=== PATIENT | male | born 1940 | race Caucasian/White ===

== ENCOUNTER 2024-02-04 06:19 | Day surgery (SDC) | payer MEDICARE, OTHER, SELFPAY ==
[2024-02-04 12:17] VITALS: BMI 27.4
[2024-02-04 12:20] VITALS: BMI 27.4
[2024-02-04 12:26] VITALS: BP 122/85
[2024-02-04 15:33] VITALS: BP 126/67
[2024-02-04 15:45] VITALS: BP 136/98
[2024-02-04 16:00] VITALS: BP 153/93
== END 2024-02-04 16:14 | disposition home or self-care (01) ==
LOC: SDS 06:19
PROVIDERS: ATTENDING PHYSICIAN Internal Medicine Gastroenterology
DX: K86.9 Disease of pancreas, unspecified (principal); K31.89 Other diseases of stomach and duodenum; R93.5 Abnormal findings on diagnostic imaging of other abdominal regions, including retroperitoneum
CPT/HCPCS: 43242; 88172; 88173; 88305; 88177; 88341; 88342

== ENCOUNTER 2024-07-12 08:56 | Inpatient (IN) | payer MEDICARE, OTHER, SELFPAY ==
[2024-06-23 10:44] LABS: Hematocrit 40.2 % (39.0-52.0); Mean Corp Hgb Conc. 32.3 g/dL (33.0-37.0); Mean Corpuscular Hgb 30.3 pg (27.0-31.0); Mean Corpuscular Volume 93.7 fL (80.0-94.0); Mean Platelet Volume 9.3 fL (7.4-10.4); Platelet Count 203 10^3/uL (130-400); Red Blood Cell Count 4.29 10^6/uL (4.70-6.10); Red Cell Dist. Width 15.3 % (11.5-14.5); White Blood Cell Count 4.9 10^3/uL (4.8-10.8)
[2024-06-23 10:54] LABS: INR 1.26; PT 16.3 Sec (11.4-14.6)
[2024-06-23 10:55] LABS: APTT 30.7 Sec (23.4-35.0)
[2024-06-23 11:33] LABS: ALT (SGPT) < 10 U/L (0-50); AST (SGOT) 22 U/L (17-59); Albumin 4.2 g/dl (3.5-5.0); Alkaline Phosphatase 74 U/L (38-126); Blood Urea Nitrogen 35 mg/dl (9-20); Carbon Dioxide 29 mmol/L (22-30); Chloride 101 mmol/L (98-107); Glucose 86 mg/dl (70-99); Sodium 138 mmol/L (135-145); Total Bilirubin 0.9 mg/dl (0.2-1.3); Total Protein 7.2 g/dl (6.3-8.2); eGFR 42.49
[2024-06-23 12:29] VITALS: BMI 27.2
--- NOTE | 2024-06-23 14:46 | PTCARENOTE ---
Abnormal EKG reviewed by Dr. Gray. Pt will need a cardiac clearance. Nathalia in Dr. Stacy's office made aware.
[2024-07-12] VITALS (17 sets, daily range): BP systolic 114–154; BP diastolic 67–98; BMI 27.2
[2024-07-12] MEDS: NORMOSOL-R/PLASMALYTE-A 1000 IV (09:18)
[2024-07-12] MEDS: TYLENOL 1000 MG PO (09:19)
[2024-07-12] MEDS: NEURONTIN 300 MG PO (09:19)
[2024-07-12] MEDS: HEPARIN 5000 UNITS SC ×2 (09:19→20:28)
--- NOTE | 2024-07-12 12:15 | W.IMMPOSTOP ---
Surgical Immed Post Op Note
-
Primary Surgeon: Ty Stacy MD
Pre-op Diagnosis: distal stomach tumor
Post-op Diagnosis: same
Procedure Performed: Exploratory laparotomy, antrectomy
Anesthesia Type: general
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
Estimated Blood Loss: 30 cc
Complications: none
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
--- NOTE | 2024-07-12 14:19 | PTCARENOTE ---
Patient admitted from [facility] post exploratory laparotomy with gastric tumor resection.Patient is drowsy but easily aroused.He denies any pain.The Dressing middle abdomen is intact without drainage.Vital signs are stable.The patient is in his bed with
the call bravo in reach.His family is at the bedside.
[2024-07-12] MEDS: D5/0.9% SODIUM CHLORIDE 1000 IV (15:19)
[2024-07-12] MEDS: NSS (PRESERVATIVE FREE) 8 ML IV (20:28)
[2024-07-12] MEDS: COLACE PO ×2 (20:28→21:24)
[2024-07-12] MEDS: PEPCID 20 MG IV (20:28)
[2024-07-13] MEDS: D5/0.9% SODIUM CHLORIDE 1000 IV ×3 (00:25→19:48)
[2024-07-13 03:01] VITALS: BP 150/91
[2024-07-13] MEDS: DILAUDID 0.5 MG IV ×2 (03:03→09:30)
--- NOTE | 2024-07-13 03:15 | PTCARENOTE ---
19:00 pt rec'vd with left nare NG tube in place, set to low continuous suction, tolerating well, drainage red/brown liquid. NG tube maintained.
[2024-07-13 03:26] VITALS: BMI 27.1
[2024-07-13 05:50] VITALS: BP 134/87
[2024-07-13 06:50] LABS: Hemoglobin 11.9 g/dL (13.0-18.0); Mean Corpuscular Hgb 30.7 pg (27.0-31.0); Mean Corpuscular Volume 90.4 fL (80.0-94.0); Mean Platelet Volume 9.1 fL (7.4-10.4); Platelet Count 197 10^3/uL (130-400); Red Blood Cell Count 3.87 10^6/uL (4.70-6.10); Red Cell Dist. Width 14.7 % (11.5-14.5)
[2024-07-13 07:17] LABS: ALT (SGPT) 16 U/L (0-50); AST (SGOT) 21 U/L (17-59); Albumin 3.3 g/dl (3.5-5.0); Alkaline Phosphatase 70 U/L (38-126); Blood Urea Nitrogen 29 mg/dl (9-20); Calcium 8.4 mg/dl (8.4-10.2); Carbon Dioxide 25 mmol/L (22-30); Chloride 106 mmol/L (98-107); Estimated Creatinine Clearance 48 ml/min; Glucose 170 mg/dl (70-99); Potassium 4.2 mmol/L (3.5-5.1); Sodium 139 mmol/L (135-145); Total Bilirubin 0.6 mg/dl (0.2-1.3); Total Protein 6.1 g/dl (6.3-8.2); eGFR > 60.00
--- NOTE | 2024-07-13 07:18 | W.PN.GENERIC ---
Assessment / Plan
-
S/p Gastric resection POD #1
Stable
NGT with min output - dc'd
Will start ora meds with sips of H2O but will keep him NPO for another day
OOB and ambulate
Physician Progress Note
Subjective
No complaints. Good pain control. No N/V
Objective
Vital Signs
Temp Pulse Resp BP Pulse Ox
98.3 F 73 20 134/87 96
07/13/24 03:01 07/13/24 05:50 07/13/24 03:01 07/13/24 05:50 07/13/24 03:01
Lab Results
07/13/24 05:38
07/13/24 05:38
Abdomen soft ND NT
NGT with min output
[2024-07-13 07:20] VITALS: BP 149/85
[2024-07-13] MEDS: MYRBETRIQ EXTENDED RELEASE 50 MG PO (09:21)
[2024-07-13] MEDS: SINEMET 25-100 1.5 TABLET PO ×4 (09:22→21:27)
[2024-07-13] MEDS: HEPARIN 5000 UNITS SC ×2 (09:22→19:48)
[2024-07-13] MEDS: COLACE 100 MG PO ×2 (09:24→19:48)
[2024-07-13] MEDS: PACERONE 200 MG PO (09:29)
--- NOTE | 2024-07-13 14:57 | CM ---
Met with pt and his at bedside
Pt reports he lives with his in a 1 story condo; no steps to enter
Independent at baseline, retired, driving
DME - rolling walker, single point cane, quad cane, shower rail, toilet rails, BiPap
SNF - [facility] in past
HH - in past - unsure of agency
PCP - Ashok Calderon
Pharm - [facility] on [address] or [place]
PT/OT evals pend
Plan - TBD based on pt needs. CM will follow
[2024-07-13 15:28] VITALS: BP 132/75
[2024-07-13 15:37] VITALS: BP 131/80; PULSE 77; O2SAT 94
[2024-07-13] MEDS: LIPITOR 10 MG PO (17:04)
[2024-07-13] MEDS: FLOMAX 0.8 MG PO (17:04)
[2024-07-13] MEDS: NSS (PRESERVATIVE FREE) 8 ML IV (21:28)
[2024-07-13] MEDS: PEPCID 20 MG IV (21:28)
[2024-07-13 23:05] VITALS: BP 148/98
[2024-07-14] MEDS: D5/0.9% SODIUM CHLORIDE 1000 IV ×2 (05:00→19:59)
[2024-07-14 08:00] VITALS: BP 151/83
[2024-07-14] MEDS: SINEMET 25-100 1.5 TABLET PO ×4 (09:09→22:57)
[2024-07-14] MEDS: HEPARIN 5000 UNITS SC (09:10)
[2024-07-14] MEDS: COLACE 100 MG PO ×2 (09:10→19:59)
[2024-07-14] MEDS: MYRBETRIQ EXTENDED RELEASE 50 MG PO (09:10)
[2024-07-14] MEDS: PACERONE 100 MG PO (09:13)
--- NOTE | 2024-07-14 09:17 | OR.RPT ---
Operative Report
Operative Report
Date of Operation: July 12, 2024
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
Postoperative Diagnosis: Same
Surgeon: Ty Stacy M.D.
Operation: �Gastric Antrectomy - 39078
Anesthesia: General Anesthesia
Estimated Blood Loss: 30 cc
Drains: None
Specimen: Gastric antrum with a tumor
Findings: Gastric antral tumor
Complications: None
Procedure:
The patient was taken to the operating room and placed in the usual supine position. After adequate general endotracheal anesthesia was established, the patient's abdomen was prepped and draped in the usual sterile fashion.
At this time, an upper midline incision was made with a #10 blade, and this was taken through the skin into the subcutaneous tissue. The fascia was divided, and the abdomen was entered. Upon entering the abdomen, the intraperitoneal cavity was
explored. There were no palpable liver masses, peritoneal nodules, or tumors in the bowel. There was a large tumor in the pyloric area of the stomach abutting the cleve structures and the liver above. The tumor was carefully dissected away from the
liver. Then, this was carefully teased off the underlying portal structures. Upon completely removing the tumor from the surrounding structures, it was noted that the tumor was arising from the pylorus. The pylorus with antrum was resected around
the tumor, and the tumor with the gastric antrum was sent to pathology for a permanent section. Hemostasis was obtained.
At this time, the defect in the antrum and the pyloric area was closed transversely using number 3-0 Prolene in a running fashion. This was reinforced with interrupted 3-0 silk serosal stitches. The pylorus was noted to be wide open by palpating the
tumor lumen from the outside. A nasogastric tube was placed and secured. Hemostasis was obtained.
At this time, the fascia was approximated with #1 Vicryl in a running fashion. The subcutaneous tissue was re-approximated with the number 3-0 Vicryl in an interrupted fashion, and the skin was approximated with the number 4-0 Monocryl in a running
circular fashion. Steri-strips and sterile dressings were applied. The final needle, sponge, and instrument counts were correct. The patient was extubated and transferred to the recovery room in a stable condition.
--- NOTE | 2024-07-14 11:33 | W.PN.GENERIC ---
Assessment / Plan
-
S/p partial gastrectomy POD #2
doing well.
will advance his diet to full liquid
Will restart Eliquis
OOB and ambulate
Physician Progress Note
Subjective
No complaints. Min pain. Tolerating clears. No BMs yet
Objective
Vital Signs
Temp Pulse Resp BP Pulse Ox
98.0 F 62 16 151/83 95
07/14/24 08:00 07/14/24 08:00 07/14/24 08:00 07/14/24 08:00 07/14/24 09:03
Lab Results
07/13/24 05:38
07/13/24 05:38
Abdomen - soft ND. Incision - CDI
[2024-07-14 15:57] VITALS: BP 115/74
[2024-07-14] MEDS: LIPITOR 10 MG PO (17:09)
[2024-07-14] MEDS: FLOMAX 0.8 MG PO (17:09)
[2024-07-14] MEDS: ELIQUIS 5 MG PO (19:59)
[2024-07-14] MEDS: NSS (PRESERVATIVE FREE) 8 ML IV (22:56)
[2024-07-14] MEDS: PEPCID 20 MG IV (22:57)
[2024-07-14 23:25] VITALS: BP 166/95
[2024-07-15 07:00] VITALS: BP 167/105
[2024-07-15] MEDS: COLACE 100 MG PO (09:16)
[2024-07-15] MEDS: MYRBETRIQ EXTENDED RELEASE 50 MG PO (09:16)
[2024-07-15] MEDS: SINEMET 25-100 1.5 TABLET PO ×2 (09:16→13:45)
[2024-07-15] MEDS: ELIQUIS 5 MG PO (09:17)
[2024-07-15] MEDS: PACERONE 200 MG PO (09:21)
[2024-07-15 09:30] VITALS: BMI 26.6
--- NOTE | 2024-07-15 09:41 | W.PN.GENERIC ---
Assessment / Plan
-
S/p Gastrectomy #3
Stable
Will increase his diet to regular
if tolerated regular diet, possible dc
Await path
Physician Progress Note
Subjective
No complaints. No pain. Tolerating full liq diet
Objective
Vital Signs
Temp Pulse Resp BP Pulse Ox
97.8 F 66 16 167/105 97
07/15/24 07:00 07/15/24 09:21 07/15/24 07:00 07/15/24 09:21 07/15/24 08:41
Lab Results
07/13/24 05:38
07/13/24 05:38
Abdomen - soft ND NT. Incision _ CDI
[2024-07-15 11:08] VITALS: BP 122/66
--- NOTE | 2024-07-15 12:29 | W.DS.TRANS ---
DC Summary - [employer]
-
Discharge Instructions:
Discharge Diagnosis/Procedures gastric resection
Diet Regular,As tolerated
Activity No strenuous activity,As tolerated
Driving Restrictions Not until seen by your Dr
Bathing Restrictions OK to Shower
Instructions:
Stand-Alone Forms:
Changes to Home Medications: No
Discharge Medications:
DC Medications w/original date entered in [employer]
carbidopa 25 mg-levodopa 100 mg tablet 1.5 tab PO QID parkinsons 02/04/24
tamsulosin 0.4 mg capsule 0.8 mg PO QPM Urinary Issue 02/04/24
amiodarone 200 mg tablet 100 mg PO SUTUTHSA afib 07/05/24
amiodarone 200 mg tablet 200 mg PO MOWEFR afib 07/05/24
apixaban 5 mg tablet (Eliquis) 5 mg PO BID Blood Clot Prevention/Tx 07/05/24
mirabegron 50 mg tablet,extended release 24 hr 50 mg PO DAILY Urinary Issue 07/05/24
onabotulinumtoxinA 100 unit solution for injection (Botox) 100 unit SC [id number] muscle paralyzer 07/05/24
simvastatin 20 mg tablet 20 mg PO QPM High Cholesterol 07/05/24
Home Medication Changes
Pending Results: No
--- NOTE | 2024-07-15 12:39 | CM ---
Chart reviewed
Met with pt and his family at bedside
PT/OT recs - HH. Discussed with pt - agreeable to HH - has no preference
TT sent to [facility] Liaison for home care needs
Family will assist at home
Reviewed IMM
Has ride at discharge
Plan - home with VN
--- NOTE | 2024-07-15 13:12 | VNURNOTE ---
Home Health Liaison met with patient to discuss [facility] nurse/therapy, visits, schedule and homebound status. Patient is agreeable and understands that visits at home will be 2-3 x per week to assess and teach medical management. [facility] brochure provided
with contact information. Patient is aware that [facility] will contact them for start of care in 1-2 days after discharge from .
[facility] referral completed in [facility].
--- NOTE | 2024-07-15 13:25 | PN.CDI ---
CDI
- -
CDI:
Physician Documentation Request
Admit Date: 07/12/24 08:56
Dear Doctor Regis,
Clinical Indicators:
Patient admitted with Gastric antral tumor; s/p gastrectomy 07/12
07/12 H & P, PMH : CHF
06/24/24 Cardiology Clearance: Diastolic dysfunction,moderate Echo 11/24/19 LVEF 55-60%
Home medications include: Lasix 20mg (1 tablet daily Mo, , Thu, Elsie, Thu)
Please provide further specificity regarding the most likely type of CHF you are evaluating, treating or monitoring.
Chronic HFpEF
History of CHF only
Other, please specify
Use of terms such as suspected, likely, concern for, or probable (associated with a specific diagnosis that is being evaluated, monitored, or treated as if it exists) are acceptable and can be coded in the inpatient setting, when documented at the
time of discharge.
Thank you,
Aleja Francisco RN BSN
CDI Specialist
available via tiger text
Please use your independent medical judgment in providing your response.
== END 2024-07-15 14:10 | disposition home health service (06) | DRG 328 ==
LOC: 2 SOUTH 08:56
PROVIDERS: ADMITTING PHYSICIAN Surgery; FAMILY PHYSICIAN Internal Medicine
PROC: 0DB60ZZ Excision of Stomach, Open Approach (ICD-10-PCS; 2024-07-12)
DX: D49.0 Neoplasm of unspecified behavior of digestive system (principal); I50.9 Heart failure, unspecified; I11.0 Hypertensive heart disease with heart failure; I48.91 Unspecified atrial fibrillation; J44.9 Chronic obstructive pulmonary disease, unspecified; G20.A1 Parkinson's disease without dyskinesia, without mention of fluctuations
CPT/HCPCS: 88307; 36415; 80053; 85027; 85610; 85730; 86850; 86900; 86901; 93005; 97116; 97163; 97167; 97530; 97535; C1776; C9250